=== PATIENT | male | born 1945 | race Caucasian/White ===

== ENCOUNTER 2017-05-11 14:27 | Emergency (ER) | payer MEDICARE, OTHER ==
[2017-05-11 16:30] LABS: ADD MAN DIFF? NO; BASOPHILS % 0.3 % (0.0-2.0); EOSINOPHILS % 0.5 % (0.0-7.0); HEMATOCRIT 36.8 % (42.0-52.0); LYMPHOCYTES # 0.6 10^3/ul (0.8-2.9); LYMPHOCYTES % 9.6 % (15.0-51.0); MEAN CORPUSCULAR HEMOGLOBIN 30.9 pg (29.0-33.0); MEAN CORPUSCULAR HGB CONC 32.6 g/dl (32.0-37.0); MEAN CORPUSCULAR VOLUME 94.8 fl (82.0-101.0); MEAN PLATELET VOLUME 10.9 fl (7.4-10.4); MONOCYTE # 0.9 10^3/ul (0.3-0.9); MONOCYTES % 14.6 % (0.0-11.0); NEUTROPHIL # 4.8 10^3/ul (1.6-7.5); NEUTROPHILS % 74.5 % (39.0-77.0); PLATELET COUNT 151 10^3/UL (140-415); RED BLOOD COUNT 3.88 10^6/ul (4.70-6.10); RED CELL DISTRIBUTION WIDTH 12.9 % (11.5-14.5)
[2017-05-11 16:30] LABS: WHITE BLOOD COUNT 6.4 10^3/ul (4.8-10.8)
[2017-05-11] MEDS: ACETAMINOPHEN 325 MG TAB PO (16:31)
[2017-05-11] MEDS: IBUPROFEN 800 MG TAB PO (16:31)
[2017-05-11] MEDS: SOD CHLORIDE 0.9% 1,000 ML IV (16:33)
[2017-05-11 16:53] LABS: INR 1.11; PROTIME 14.5 Sec (11.9-14.9); PT RATIO 1.1
[2017-05-11 16:54] LABS: PARTIAL THROMBOPLASTIN TIME 37.9 Sec (25.0-35.0)
[2017-05-11] MEDS: SODIUM CHLORIDE 0.9% 1L BAG IV* (16:59)
[2017-05-11 17:00] LABS: LACTIC ACID 1.2 mmol/L (0.5-2.0)
[2017-05-11 17:10] LABS: ALANINE AMINOTRANSFERASE 49 IU/L (13-69); ALBUMIN 4.3 g/dl (3.3-4.9); ALBUMIN/GLOBULIN RATIO 1.53; ALKALINE PHOSPHATASE 61 IU/L (42-121); ANION GAP 16 (8-16); ASPARTATE AMINO TRANSFERASE 61 IU/L (15-46); BILIRUBIN,INDIRECT 0.1 mg/dl (0-1.1); BILIRUBIN,TOTAL 0.1 mg/dl (0.2-1.3); BLOOD UREA NITROGEN 22 mg/dl (7-20); CALCIUM 8.7 mg/dl (8.4-10.2); CARBON DIOXIDE 25 mmol/L (21-31); CHLORIDE 101 mmol/L (97-110); CREATINE KINASE 695 IU/L (23-200); CREATININE 0.87 mg/dl (0.61-1.24); GLUCOSE 142 mg/dl (70-220); SODIUM 138 mmol/L (135-144); TOTAL PROTEIN 7.1 g/dl (6.1-8.1)
[2017-05-11 17:22] LABS: CK INDEX 0.1
[2017-05-11 17:23] LABS: CK-MB 0.64 ng/ml (0.0-2.4)
[2017-05-11] MEDS: OSELTAMIVIR 75 MG CAP PO (18:46)
== END 2017-05-11 21:15 | disposition home or self-care (01) ==
LOC: E/R 14:27
DX: J10.1 Influenza due to other identified influenza virus with other respiratory manifestations (principal); R41.82 Altered mental status, unspecified; R06.02 Shortness of breath
CPT/HCPCS: 70450; 71045; 80053; 82550; 82553; 83605; 84484; 85025; 85610; 85730; 87040; 87400; 93005; 99285-25

== ENCOUNTER 2017-05-13 19:49 | Inpatient (IN) | payer MEDICARE, OTHER ==
[2017-05-13 20:47] LABS: ADD MAN DIFF? NO
[2017-05-13] MEDS: CEFEPIME 2GM/50 ML (PMX) 50 ML IVPB (20:48)
[2017-05-13] MEDS: SODIUM CHLORIDE 0.9% 1L BAG IV* (20:48)
[2017-05-13] MEDS: OSELTAMIVIR 75 MG CAP PO (20:48)
[2017-05-13 20:49] LABS: BASOPHILS % 0.2 % (0.0-2.0); EOSINOPHILS # 0.1 10^3/ul (0.0-0.5); EOSINOPHILS % 1.3 % (0.0-7.0); HEMATOCRIT 34.5 % (42.0-52.0); HEMOGLOBIN 11.2 g/dl (14.0-18.0); LYMPHOCYTES # 1.2 10^3/ul (0.8-2.9); LYMPHOCYTES % 22.6 % (15.0-51.0); MEAN CORPUSCULAR HEMOGLOBIN 30.9 pg (29.0-33.0); MEAN CORPUSCULAR HGB CONC 32.5 g/dl (32.0-37.0); MEAN CORPUSCULAR VOLUME 95.3 fl (82.0-101.0); MEAN PLATELET VOLUME 11.3 fl (7.4-10.4); MONOCYTE # 0.4 10^3/ul (0.3-0.9); MONOCYTES % 7.4 % (0.0-11.0); NEUTROPHIL # 3.7 10^3/ul (1.6-7.5); NEUTROPHILS % 67.9 % (39.0-77.0); PLATELET COUNT 124 10^3/UL (140-415); POSITIVE DIFF @See below; RED BLOOD COUNT 3.62 10^6/ul (4.70-6.10); RED CELL DISTRIBUTION WIDTH 13.2 % (11.5-14.5)
[2017-05-13 20:49] LABS: WHITE BLOOD COUNT 5.4 10^3/ul (4.8-10.8)
[2017-05-13 21:01] LABS: ADD UMIC YES; UR ASCORBIC ACID NEGATIVE (NEGATIVE); UR BILIRUBIN (Dip) NEGATIVE (NEGATIVE); UR BLOOD (Dip) 1+ mg/dL (NEGATIVE); UR CLARITY SLIGHTLY CLOUDY (CLEAR); UR COLOR YELLOW (YELLOW); UR GLUCOSE (Dip) 2+ mg/dL (NEGATIVE); UR KETONES (Dip) NEGATIVE (NEGATIVE); UR LEUKOCYTE ESTERASE (Dip) NEGATIVE Leu/ul (NEGATIVE); UR NITRITE (Dip) NEGATIVE (NEGATIVE); UR RBC 43 /HPF (0-5); UR SPECIFIC GRAVITY (Dip) 1.026 (1.003-1.030); UR TOTAL PROTEIN (Dip) 1+ mg/dl (NEGATIVE); UR UROBILINOGEN (Dip) NEGATIVE (NEGATIVE); UR WBC 9 /HPF (0-5)
[2017-05-13 21:09] LABS: INR 1.03; PROTIME 13.6 Sec (11.9-14.9); PT RATIO 1.1
[2017-05-13 21:10] LABS: PARTIAL THROMBOPLASTIN TIME 38.9 Sec (25.0-35.0)
[2017-05-13 21:13] LABS: LACTIC ACID 1.2 mmol/L (0.5-2.0)
[2017-05-13 21:26] LABS: ALANINE AMINOTRANSFERASE 47 IU/L (13-69); ALBUMIN 3.3 g/dl (3.3-4.9); ALBUMIN/GLOBULIN RATIO 1.32; ALKALINE PHOSPHATASE 56 IU/L (42-121); ANION GAP 14 (8-16); ASPARTATE AMINO TRANSFERASE 46 IU/L (15-46); BLOOD UREA NITROGEN 14 mg/dl (7-20); CALCIUM 8.3 mg/dl (8.4-10.2); CARBON DIOXIDE 25 mmol/L (21-31); CHLORIDE 109 mmol/L (97-110); CREATININE 0.72 mg/dl (0.61-1.24); GLUCOSE 180 mg/dl (70-220); POTASSIUM 4.4 mmol/L (3.5-5.1); SODIUM 144 mmol/L (135-144); TOTAL PROTEIN 5.8 g/dl (6.1-8.1)
[2017-05-13] MEDS ORDERED: ACETAMINOPHEN 325 MG TAB PO ×2 (21:30)
[2017-05-13] MEDS ORDERED: ONDANSETRON 4 MG TAB PO (21:30)
[2017-05-13] MEDS ORDERED: ONDANSETRON 4 MG INJ IV (21:30)
[2017-05-13] MEDS ORDERED: VANCOMYCIN IV PER PHARMACY XX (21:30)
[2017-05-13 21:37] LABS: TROPONIN-I 0.023 ng/ml (0.00-0.12)
[2017-05-13] MEDS: VANCOMYCIN 1 GM (PMX) 250 ML IVPB (21:54)
[2017-05-13] MEDS: NACL 0.9% 3 ML SYG IV (22:05)
[2017-05-13] MEDS: carBAMAZepine (XR) 200 MG TABSR PO (22:05)
[2017-05-13] MEDS: SOD CHLORIDE 0.9% 1,000 ML IV (22:47)
[2017-05-13] MEDS: carBAMAZepine (XR) 100 MG TABSR PO (22:49)
[2017-05-13 23:08] LABS: LACTIC ACID 0.6 mmol/L (0.5-2.0)
[2017-05-14 02:14] LABS: LACTIC ACID 0.7 mmol/L (0.5-2.0)
[2017-05-14 05:36] LABS: ADD MAN DIFF? NO
[2017-05-14 05:44] LABS: WHITE BLOOD COUNT 4.6 10^3/ul (4.8-10.8)
[2017-05-14 05:44] LABS: BASOPHILS % 0.2 % (0.0-2.0); EOSINOPHILS # 0.1 10^3/ul (0.0-0.5); HEMATOCRIT 29.1 % (42.0-52.0); HEMOGLOBIN 9.7 g/dl (14.0-18.0); LYMPHOCYTES # 1.5 10^3/ul (0.8-2.9); LYMPHOCYTES % 33.6 % (15.0-51.0); MEAN CORPUSCULAR HEMOGLOBIN 31.5 pg (29.0-33.0); MEAN CORPUSCULAR HGB CONC 33.3 g/dl (32.0-37.0); MEAN CORPUSCULAR VOLUME 94.5 fl (82.0-101.0); MEAN PLATELET VOLUME 11.3 fl (7.4-10.4); MONOCYTE # 0.3 10^3/ul (0.3-0.9); NEUTROPHIL # 2.6 10^3/ul (1.6-7.5); PLATELET COUNT 101 10^3/UL (140-415); POSITIVE DIFF @See below; RED BLOOD COUNT 3.08 10^6/ul (4.70-6.10); RED CELL DISTRIBUTION WIDTH 13.2 % (11.5-14.5)
[2017-05-14] MEDS ORDERED: GLUCAGON 1 MG INJ IM (06:00)
[2017-05-14] MEDS ORDERED: GLUCOSE GEL 15 GRAM TUBE PO ×2 (06:00)
[2017-05-14] MEDS ORDERED: DEXTROSE 50% 50 ML SYRINGE IV ×2 (06:00)
[2017-05-14] MEDS ORDERED: GLUCOSE GEL 15 GRAM TUBE BUCCAL (06:00)
[2017-05-14 06:22] LABS: ALANINE AMINOTRANSFERASE 43 IU/L (13-69); ALBUMIN 2.8 g/dl (3.3-4.9); ALBUMIN/GLOBULIN RATIO 1.16; ALKALINE PHOSPHATASE 43 IU/L (42-121); ANION GAP 12 (8-16); ASPARTATE AMINO TRANSFERASE 37 IU/L (15-46); BLOOD UREA NITROGEN 12 mg/dl (7-20); CALCIUM 7.4 mg/dl (8.4-10.2); CARBON DIOXIDE 25 mmol/L (21-31); CHLORIDE 113 mmol/L (97-110); CHOL/HDL RATIO 2.9 RATIO; CHOLESTEROL 90 mg/dl (100-200); CREATININE 0.71 mg/dl (0.61-1.24); GLUCOSE 165 mg/dl (70-220); HDL CHOLESTEROL 31 mg/dl (31-75); LDL CHOLESTEROL,CALCULATED 39 mg/dl; MAGNESIUM 1.7 mg/dl (1.7-2.5); POTASSIUM 3.6 mmol/L (3.5-5.1); SODIUM 146 mmol/L (135-144); TOTAL PROTEIN 5.2 g/dl (6.1-8.1); TRIGLYCERIDES 100 mg/dl (0-149)
[2017-05-14 07:06] LABS: HEMOGLOBIN A1C 7.3 % (0-5.9)
[2017-05-14] MEDS: INSULIN ASPART [NOVOLOG] 3 ML PEN SC ×6 (07:50→20:25)
[2017-05-14] MEDS: KETOCONAZOLE 2% SHAMPOO 120 ML BTL TOP (09:00)
[2017-05-14] MEDS ORDERED: CEFEPIME 1GM/50 ML (PMX) 50 ML IVPB (09:00)
[2017-05-14] MEDS: carBAMAZepine (XR) 100 MG TABSR PO (09:35)
[2017-05-14] MEDS: VANCOMYCIN 1 GM 250 ML IVPB ×2 (09:35→21:44)
[2017-05-14] MEDS: LISINOPRIL 20 MG TAB PO (09:36)
[2017-05-14] MEDS: OSELTAMIVIR 75 MG CAP PO ×2 (09:36→20:16)
[2017-05-14] MEDS: ATENOLOL 100 MG TAB PO (09:36)
[2017-05-14] MEDS: AMLODIPINE 10 MG TAB PO (09:36)
[2017-05-14] MEDS: ASPIRIN (EC) 81 MG TAB PO (09:37)
[2017-05-14] MEDS: TERBINAFINE 250 MG TAB PO (09:40)
[2017-05-14] MEDS: SOD CHLORIDE 0.9% 1,000 ML IV ×2 (10:28→17:31)
[2017-05-14 10:35] LABS: FREE T4 (FREE THYROXINE) 0.82 ng/dl (0.78-2.44)
[2017-05-14 10:43] LABS: CREATINE KINASE 338 IU/L (23-200)
[2017-05-14 10:55] LABS: CK INDEX 0.4; TROPONIN-I 0.018 ng/ml (0.00-0.12)
[2017-05-14 10:58] LABS: CK-MB 1.23 ng/ml (0.0-2.4)
[2017-05-14 11:54] LABS: IRON 60 ug/dl (35-150)
[2017-05-14 12:04] LABS: % IRON SATURATION 28 % SAT (22-52)
[2017-05-14 12:43] LABS: TOTAL IRON BINDING CAPACITY 215 ug/dl (241-421)
[2017-05-14] MEDS: TAMSULOSIN (SR) 0.4 MG CAP PO (20:16)
[2017-05-14] MEDS: ATORVASTATIN 40 MG TAB PO (20:16)
[2017-05-14] MEDS: INSULIN GLARGINE [LANtus] 3 ML PEN SC (20:25)
[2017-05-14] MEDS: hydrALAzine 20 MG INJ IV (20:56)
[2017-05-14] MEDS ORDERED: INSULIN GLARGINE [LANtus] 3 ML PEN SC (21:00)
[2017-05-14] MEDS: CEPHALEXIN 500 MG CAP PO (21:40)
[2017-05-14] MEDS: IBUPROFEN 600 MG TAB PO (21:43)
[2017-05-15] MEDS: SOD CHLORIDE 0.9% 1,000 ML IV ×2 (01:00→13:32)
[2017-05-15] MEDS: ACCU-CHEK XX (02:00)
[2017-05-15] MEDS: IBUPROFEN 600 MG TAB PO ×3 (05:00→21:45)
[2017-05-15 05:53] LABS: ADD MAN DIFF? NO
[2017-05-15 05:55] LABS: WHITE BLOOD COUNT 4.7 10^3/ul (4.8-10.8)
[2017-05-15 05:55] LABS: BASOPHILS % 0.2 % (0.0-2.0); EOSINOPHILS # 0.1 10^3/ul (0.0-0.5); EOSINOPHILS % 1.1 % (0.0-7.0); HEMATOCRIT 31.7 % (42.0-52.0); HEMOGLOBIN 10.3 g/dl (14.0-18.0); LYMPHOCYTES # 1.4 10^3/ul (0.8-2.9); LYMPHOCYTES % 29.3 % (15.0-51.0); MEAN CORPUSCULAR HEMOGLOBIN 30.6 pg (29.0-33.0); MEAN CORPUSCULAR HGB CONC 32.5 g/dl (32.0-37.0); MEAN CORPUSCULAR VOLUME 94.1 fl (82.0-101.0); MONOCYTE # 0.4 10^3/ul (0.3-0.9); MONOCYTES % 9.1 % (0.0-11.0); NEUTROPHIL # 2.8 10^3/ul (1.6-7.5); NEUTROPHILS % 59.5 % (39.0-77.0); POSITIVE DIFF @See below; RED BLOOD COUNT 3.37 10^6/ul (4.70-6.10); RED CELL DISTRIBUTION WIDTH 12.9 % (11.5-14.5)
[2017-05-15 06:02] LABS: PLATELET COUNT 136 10^3/UL (140-415)
[2017-05-15 06:28] LABS: CREATINE KINASE 270 IU/L (23-200); MAGNESIUM 1.7 mg/dl (1.7-2.5)
[2017-05-15 06:28] LABS: PHOSPHORUS 2.8 mg/dl (2.5-4.9)
[2017-05-15 06:31] LABS: ALANINE AMINOTRANSFERASE 43 IU/L (13-69); ALBUMIN 3.1 g/dl (3.3-4.9); ALBUMIN/GLOBULIN RATIO 1.14; ALKALINE PHOSPHATASE 53 IU/L (42-121); ANION GAP 13 (8-16); ASPARTATE AMINO TRANSFERASE 37 IU/L (15-46); BLOOD UREA NITROGEN 10 mg/dl (7-20); CALCIUM 8.1 mg/dl (8.4-10.2); CARBON DIOXIDE 25 mmol/L (21-31); CHLORIDE 108 mmol/L (97-110); CREATININE 0.63 mg/dl (0.61-1.24); GLUCOSE 86 mg/dl (70-220); SODIUM 143 mmol/L (135-144); TOTAL PROTEIN 5.8 g/dl (6.1-8.1)
[2017-05-15 06:33] LABS: CK INDEX 0.5; TROPONIN-I 0.017 ng/ml (0.00-0.12)
[2017-05-15 06:56] LABS: CK-MB 1.22 ng/ml (0.0-2.4)
[2017-05-15 06:58] LABS: POTASSIUM 2.9 mmol/L (3.5-5.1)
[2017-05-15] MEDS: INSULIN ASPART [NOVOLOG] 3 ML PEN SC ×7 (07:57→21:00)
[2017-05-15] MEDS: POTASSIUM CHLORIDE (SR) 20 MEQ TAB PO (08:29)
[2017-05-15] MEDS: MAGNESIUM SULFATE 2 GM/50 ML 50 ML IVPB (08:30)
[2017-05-15] MEDS: KETOCONAZOLE 2% SHAMPOO 120 ML BTL TOP (09:00)
[2017-05-15] MEDS: carBAMAZepine (XR) 100 MG TABSR PO (09:14)
[2017-05-15] MEDS: CEPHALEXIN 500 MG CAP PO (09:15)
[2017-05-15] MEDS: AMLODIPINE 10 MG TAB PO (09:15)
[2017-05-15] MEDS: OSELTAMIVIR 75 MG CAP PO ×2 (09:16→21:45)
[2017-05-15] MEDS: LISINOPRIL 20 MG TAB PO (09:16)
[2017-05-15] MEDS: TERBINAFINE 250 MG TAB PO (09:16)
[2017-05-15] MEDS: ATENOLOL 100 MG TAB PO (09:17)
[2017-05-15] MEDS: ASPIRIN (EC) 81 MG TAB PO (09:17)
[2017-05-15] MEDS: GUAIFENESIN/DM (SR) TAB PO ×2 (09:18→22:08)
[2017-05-15] MEDS: VANCOMYCIN 1 GM 250 ML IVPB (10:36)
[2017-05-15] MEDS: LEVOFLOXACIN 500 MG TAB PO (13:35)
[2017-05-15 15:02] LABS: CREATININE, RANDOM URINE 98 mg/dL (20-370); MICROALBUMIN 5.5 mg/dL; MICROALBUMIN/CREATININE RATIO 56 (<30)
[2017-05-15] MEDS: TAMSULOSIN (SR) 0.4 MG CAP PO (21:45)
[2017-05-15] MEDS: ATORVASTATIN 40 MG TAB PO (21:45)
[2017-05-15] MEDS: INSULIN GLARGINE [LANtus] 3 ML PEN SC (21:50)
[2017-05-16] MEDS: ACCU-CHEK XX (01:40)
[2017-05-16] MEDS: SOD CHLORIDE 0.9% 1,000 ML IV (02:04)
[2017-05-16] MEDS: IBUPROFEN 600 MG TAB PO ×3 (05:45→21:05)
[2017-05-16] MEDS: LEVOFLOXACIN 500 MG TAB PO (05:45)
[2017-05-16 05:52] LABS: ADD MAN DIFF? NO
[2017-05-16] MEDS: hydrALAzine 20 MG INJ IV (05:53)
[2017-05-16 05:57] LABS: WHITE BLOOD COUNT 5.4 10^3/ul (4.8-10.8)
[2017-05-16 05:57] LABS: BASOPHILS % 0.4 % (0.0-2.0); EOSINOPHILS # 0.1 10^3/ul (0.0-0.5); EOSINOPHILS % 1.1 % (0.0-7.0); HEMATOCRIT 34.9 % (42.0-52.0); HEMOGLOBIN 11.5 g/dl (14.0-18.0); LYMPHOCYTES # 1.4 10^3/ul (0.8-2.9); LYMPHOCYTES % 25.4 % (15.0-51.0); MEAN CORPUSCULAR VOLUME 94.1 fl (82.0-101.0); MEAN PLATELET VOLUME 10.7 fl (7.4-10.4); MONOCYTE # 0.6 10^3/ul (0.3-0.9); MONOCYTES % 11.4 % (0.0-11.0); NEUTROPHIL # 3.2 10^3/ul (1.6-7.5); NEUTROPHILS % 60.6 % (39.0-77.0); PLATELET COUNT 182 10^3/UL (140-415); RED BLOOD COUNT 3.71 10^6/ul (4.70-6.10); RED CELL DISTRIBUTION WIDTH 12.9 % (11.5-14.5)
[2017-05-16 06:21] LABS: MAGNESIUM 1.8 mg/dl (1.7-2.5)
[2017-05-16 06:21] LABS: PHOSPHORUS 2.9 mg/dl (2.5-4.9)
[2017-05-16 06:32] LABS: ANION GAP 14 (8-16); BLOOD UREA NITROGEN 10 mg/dl (7-20); CALCIUM 8.8 mg/dl (8.4-10.2); CARBON DIOXIDE 28 mmol/L (21-31); CHLORIDE 103 mmol/L (97-110); CREATININE 0.61 mg/dl (0.61-1.24); GLUCOSE 125 mg/dl (70-220); POTASSIUM 3.6 mmol/L (3.5-5.1); SODIUM 141 mmol/L (135-144)
[2017-05-16] MEDS: INSULIN ASPART [NOVOLOG] 3 ML PEN SC ×7 (08:15→21:14)
[2017-05-16] MEDS: GUAIFENESIN/DM (SR) TAB PO ×2 (08:34→21:05)
[2017-05-16] MEDS: carBAMAZepine (XR) 100 MG TABSR PO (08:34)
[2017-05-16] MEDS: ASPIRIN (EC) 81 MG TAB PO (08:35)
[2017-05-16] MEDS: OSELTAMIVIR 75 MG CAP PO ×2 (08:35→21:05)
[2017-05-16] MEDS: LISINOPRIL 20 MG TAB PO (08:35)
[2017-05-16] MEDS: TERBINAFINE 250 MG TAB PO (08:36)
[2017-05-16] MEDS: AMLODIPINE 10 MG TAB PO (08:36)
[2017-05-16] MEDS: ATENOLOL 100 MG TAB PO (08:36)
[2017-05-16] MEDS: KETOCONAZOLE 2% SHAMPOO 120 ML BTL TOP (08:37)
[2017-05-16] MEDS: INFLUENZA VIRUS VACCINE 0.5 ML (DISPENSING) IM* (09:00)
[2017-05-16] MEDS: TAMSULOSIN (SR) 0.4 MG CAP PO (21:04)
[2017-05-16] MEDS: ATORVASTATIN 40 MG TAB PO (21:05)
[2017-05-16] MEDS: INSULIN GLARGINE [LANtus] 3 ML PEN SC (21:13)
[2017-05-17] MEDS: ACCU-CHEK XX (01:27)
[2017-05-17] MEDS: LEVOFLOXACIN 500 MG TAB PO (05:32)
[2017-05-17] MEDS: IBUPROFEN 600 MG TAB PO ×3 (05:32→21:35)
[2017-05-17] MEDS: INSULIN ASPART [NOVOLOG] 3 ML PEN SC ×7 (08:09→20:43)
[2017-05-17] MEDS: ASPIRIN (EC) 81 MG TAB PO (08:11)
[2017-05-17] MEDS: TERBINAFINE 250 MG TAB PO (08:12)
[2017-05-17] MEDS: carBAMAZepine (XR) 100 MG TABSR PO (08:12)
[2017-05-17] MEDS: GUAIFENESIN/DM (SR) TAB PO ×2 (08:12→20:39)
[2017-05-17] MEDS: LISINOPRIL 20 MG TAB PO (08:13)
[2017-05-17] MEDS: AMLODIPINE 10 MG TAB PO (08:13)
[2017-05-17] MEDS: ATENOLOL 100 MG TAB PO (08:13)
[2017-05-17] MEDS: OSELTAMIVIR 75 MG CAP PO ×2 (08:14→20:39)
[2017-05-17] MEDS: KETOCONAZOLE 2% SHAMPOO 120 ML BTL TOP (08:14)
[2017-05-17] MEDS: ATORVASTATIN 40 MG TAB PO (20:39)
[2017-05-17] MEDS: TAMSULOSIN (SR) 0.4 MG CAP PO (20:39)
[2017-05-17] MEDS: INSULIN GLARGINE [LANtus] 3 ML PEN SC ×2 (20:51→20:56)
[2017-05-18] MEDS: ACCU-CHEK XX (01:30)
[2017-05-18] MEDS: LEVOFLOXACIN 500 MG TAB PO (05:17)
[2017-05-18] MEDS: IBUPROFEN 600 MG TAB PO ×3 (05:17→21:33)
[2017-05-18] MEDS: hydrALAzine 20 MG INJ IV (05:33)
[2017-05-18] MEDS: INSULIN ASPART [NOVOLOG] 3 ML PEN SC ×7 (08:06→21:00)
[2017-05-18] MEDS: KETOCONAZOLE 2% SHAMPOO 120 ML BTL TOP (09:00)
[2017-05-18] MEDS: ASPIRIN (EC) 81 MG TAB PO (09:04)
[2017-05-18] MEDS: AMLODIPINE 10 MG TAB PO (09:04)
[2017-05-18] MEDS: OSELTAMIVIR 75 MG CAP PO ×2 (09:04→21:34)
[2017-05-18] MEDS: TERBINAFINE 250 MG TAB PO (09:04)
[2017-05-18] MEDS: carBAMAZepine (XR) 100 MG TABSR PO (09:04)
[2017-05-18] MEDS: GUAIFENESIN/DM (SR) TAB PO ×2 (09:04→21:34)
[2017-05-18] MEDS: LISINOPRIL 20 MG TAB PO (09:05)
[2017-05-18] MEDS: ATENOLOL 100 MG TAB PO (09:05)
[2017-05-18] MEDS: INSULIN GLARGINE [LANtus] 3 ML PEN SC ×2 (21:00→21:57)
[2017-05-18] MEDS: ATORVASTATIN 40 MG TAB PO (21:34)
[2017-05-18] MEDS: TAMSULOSIN (SR) 0.4 MG CAP PO (21:34)
[2017-05-19] MEDS: ACCU-CHEK XX (02:00)
[2017-05-19] MEDS: IBUPROFEN 600 MG TAB PO ×3 (05:32→21:34)
[2017-05-19] MEDS: LEVOFLOXACIN 500 MG TAB PO (05:32)
[2017-05-19 06:21] LABS: ADD MAN DIFF? NO
[2017-05-19 06:31] LABS: ABNORMAL IP MESSAGE 1; BASOPHIL # 0.1 10^3/ul (0.0-0.1); BASOPHILS % 0.5 % (0.0-2.0); EOSINOPHILS # 0.3 10^3/ul (0.0-0.5); EOSINOPHILS % 2.8 % (0.0-7.0); HEMATOCRIT 35.3 % (42.0-52.0); HEMOGLOBIN 11.7 g/dl (14.0-18.0); LYMPHOCYTES % 20.3 % (15.0-51.0); MEAN CORPUSCULAR HEMOGLOBIN 30.9 pg (29.0-33.0); MEAN CORPUSCULAR HGB CONC 33.1 g/dl (32.0-37.0); MEAN CORPUSCULAR VOLUME 93.1 fl (82.0-101.0); MEAN PLATELET VOLUME 10.5 fl (7.4-10.4); MONOCYTE # 1.6 10^3/ul (0.3-0.9); MONOCYTES % 15.7 % (0.0-11.0); NEUTROPHIL # 5.8 10^3/ul (1.6-7.5); PLATELET COUNT 340 10^3/UL (140-415); POSITIVE DIFF @See below; RED BLOOD COUNT 3.79 10^6/ul (4.70-6.10)
[2017-05-19 07:12] LABS: ANION GAP 12 (8-16); BLOOD UREA NITROGEN 19 mg/dl (7-20); CALCIUM 9.3 mg/dl (8.4-10.2); CARBON DIOXIDE 26 mmol/L (21-31); CHLORIDE 102 mmol/L (97-110); CREATININE 0.74 mg/dl (0.61-1.24); GLUCOSE 128 mg/dl (70-220); POTASSIUM 4.2 mmol/L (3.5-5.1); SODIUM 136 mmol/L (135-144)
[2017-05-19] MEDS: INSULIN ASPART [NOVOLOG] 3 ML PEN SC ×7 (08:15→20:35)
[2017-05-19] MEDS: carBAMAZepine (XR) 100 MG TABSR PO (08:25)
[2017-05-19] MEDS: OSELTAMIVIR 75 MG CAP PO (08:26)
[2017-05-19] MEDS: ASPIRIN (EC) 81 MG TAB PO (08:26)
[2017-05-19] MEDS: TERBINAFINE 250 MG TAB PO (08:26)
[2017-05-19] MEDS: AMLODIPINE 10 MG TAB PO (08:27)
[2017-05-19] MEDS: ATENOLOL 100 MG TAB PO (08:27)
[2017-05-19] MEDS: LISINOPRIL 20 MG TAB PO (08:28)
[2017-05-19] MEDS: GUAIFENESIN/DM (SR) TAB PO ×2 (12:00→20:36)
[2017-05-19] MEDS: KETOCONAZOLE 2% SHAMPOO 120 ML BTL TOP (12:01)
[2017-05-19] MEDS: TAMSULOSIN (SR) 0.4 MG CAP PO (20:36)
[2017-05-19] MEDS: ATORVASTATIN 40 MG TAB PO (20:36)
[2017-05-19] MEDS: INSULIN GLARGINE [LANtus] 3 ML PEN SC (20:40)
[2017-05-19] MEDS ORDERED: INSULIN GLARGINE [LANtus] 3 ML PEN SC (21:00)
[2017-05-20] MEDS: ACCU-CHEK XX (01:39)
[2017-05-20] MEDS: IBUPROFEN 600 MG TAB PO ×2 (05:20→15:31)
[2017-05-20] MEDS: ATENOLOL 100 MG TAB PO (08:11)
[2017-05-20] MEDS: TERBINAFINE 250 MG TAB PO (08:11)
[2017-05-20] MEDS: LISINOPRIL 20 MG TAB PO (08:11)
[2017-05-20] MEDS: ASPIRIN (EC) 81 MG TAB PO (08:11)
[2017-05-20] MEDS: carBAMAZepine (XR) 100 MG TABSR PO (08:11)
[2017-05-20] MEDS: GUAIFENESIN/DM (SR) TAB PO ×2 (08:12→20:35)
[2017-05-20] MEDS: AMLODIPINE 10 MG TAB PO (08:12)
[2017-05-20] MEDS: INSULIN ASPART [NOVOLOG] 3 ML PEN SC ×7 (08:15→20:36)
[2017-05-20] MEDS: KETOCONAZOLE 2% SHAMPOO 120 ML BTL TOP (09:00)
[2017-05-20] MEDS: LEVOFLOXACIN 500 MG TAB PO (13:08)
[2017-05-20] MEDS: TAMSULOSIN (SR) 0.4 MG CAP PO (20:35)
[2017-05-20] MEDS: ATORVASTATIN 40 MG TAB PO (20:35)
[2017-05-20] MEDS: INSULIN GLARGINE [LANtus] 3 ML PEN SC (20:37)
[2017-05-21] MEDS ORDERED: LEVOFLOXACIN 500 MG TAB PO (06:00)
== END 2017-05-20 21:20 | disposition home health service (06) | DRG 195 ==
LOC: E/R 19:49 → MS2 21:25
DX: J10.1 Influenza due to other identified influenza virus with other respiratory manifestations (principal); E11.9 Type 2 diabetes mellitus without complications; D64.9 Anemia, unspecified; E78.5 Hyperlipidemia, unspecified; I10 Essential (primary) hypertension; G50.0 Trigeminal neuralgia; J18.9 Pneumonia, unspecified organism; N40.0 Benign prostatic hyperplasia without lower urinary tract symptoms; R27.0 Ataxia, unspecified; R53.1 Weakness; Z86.73 Personal history of transient ischemic attack (TIA), and cerebral infarction without residual deficits; Z87.891 Personal history of nicotine dependence
CPT/HCPCS: 36415; 70450; 71045; 80048; 80053; 80061; 81001; 82043; 82550; 82553; 82728; 82962; 83036; 83540; 83605; 83735; 84100; 84439; 84443; 84484; 85025; 85610; 85730; 87040; 87045; 87086; 90686; 93005; 93306; 93880; 96365; 96375; 97110; 97116; 97164; 97530; 99291-25